=== PATIENT | female | born 1975 | race Caucasian/White ===

== ENCOUNTER → 2020-06-29 12:03 | Outpatient (CLI) | payer BC, SELFPAY ==
[2020-06-24 15:29] VITALS: BMI 38.1
--- NOTE | 2020-06-29 12:10 | US_ITS ---
STUDY: ULTRASOUND OF THE FEMALE PELVIS - COMPLETE REASON FOR EXAM: Female, 45 years old. Menorrhagia LMP: 06/10/2020. TECHNIQUE: Transabdominal and Transvaginal TECHNICAL QUALITY: Adequate. COMPARISON: None. FINDINGS: The uterus is anteverted and is in a midline position. The uterus is enlarged and measures 12 cm x 7.1 cm x 6.4 cm. Normal uterine cervix. The endometrium measures 17 mm in thickness, and is hyperechoic. There is no demonstrated endometrial mass. Heterogeneous appearance of the uterus although no focal fibroid is seen. I.U.D. - The patient does not have an I.U.D. The right ovary is visualized. The right ovary measures 4.6 cm x 3.7 cm x 1.8 cm. There is no right ovarian cyst or ovarian mass. There is no visualized right adnexal mass or complex lesion. There is normal arterial and normal venous vascularity. The left ovary is visualized. The left ovary measures 4.7 cm x 5.7 cm x 3.6 cm. There is a 2 cm x 1.4 cm x 1.8 cm cyst. There is no visualized left adnexal mass or complex lesion. There is normal arterial and normal venous vascularity. There is no fluid in the cul-de-sac. The pre void volume of the bladder was 541 ml. Polycystic ovary disease: No. US/Transvaginal Non- IMPRESSION: Enlarged heterogeneous uterus with thickened endometrium. 2 cm x 1.4 cm x 1.8 cm left ovarian cyst. Electronically Signed: Jim Matthews MD at 14:49 EST , Service support ,
--- NOTE | 2020-06-29 12:10 | US_ITS ---
STUDY: ULTRASOUND OF THE FEMALE PELVIS - COMPLETE REASON FOR EXAM: Female, 45 years old. Menorrhagia LMP: 06/10/2020. TECHNIQUE: Transabdominal and Transvaginal TECHNICAL QUALITY: Adequate. COMPARISON: None. FINDINGS: The uterus is anteverted and is in a midline position. The uterus is enlarged and measures 12 cm x 7.1 cm x 6.4 cm. Normal uterine cervix. The endometrium measures 17 mm in thickness, and is hyperechoic. There is no demonstrated endometrial mass. Heterogeneous appearance of the uterus although no focal fibroid is seen. I.U.D. - The patient does not have an I.U.D. The right ovary is visualized. The right ovary measures 4.6 cm x 3.7 cm x 1.8 cm. There is no right ovarian cyst or ovarian mass. There is no visualized right adnexal mass or complex lesion. There is normal arterial and normal venous vascularity. The left ovary is visualized. The left ovary measures 4.7 cm x 5.7 cm x 3.6 cm. There is a 2 cm x 1.4 cm x 1.8 cm cyst. There is no visualized left adnexal mass or complex lesion. There is normal arterial and normal venous vascularity. There is no fluid in the cul-de-sac. The pre void volume of the bladder was 541 ml. Polycystic ovary disease: No. US/Pelvic (Non ) IMPRESSION: Enlarged heterogeneous uterus with thickened endometrium. 2 cm x 1.4 cm x 1.8 cm left ovarian cyst. Electronically Signed: Jim Matthews MD at 14:49 EST , Service support ,
--- NOTE | 2020-06-29 12:10 | BI_ITS ---
MAMMOGRAPHY - BILATERAL SCREENING REASON FOR EXAM: Female, 45 years old. Routine annual screening examination. PERTINENT HISTORY: Non-contributory. TECHNIQUE: Digital bilateral breast cathleen (3D mammographic acquisition) in the CC and MLO projections. 2-D mediolateral oblique (MLO) and craniocaudad (CC) views of both breasts were obtained. CAD: Full Field Digital Mammography with Computer Added Detection was performed. COMPARISON: Comparison is made with prior outside examination dated 12/23/2018. FINDINGS: Breast Composition: The breasts are heterogeneously dense, which may obscure small masses. There are no dominant masses or suspicious calcifications. No other significant abnormalities are identified. There has been no significant change since the prior study. BI/SCRN MAMM (CAD)W/CATHLEEN BILAT IMPRESSION: Stable bilateral screening mammogram. Yearly follow-up mammogram recommended. (A) ASSESSMENT CATEGORY: BIRADS Category 1: Negative. A letter regarding these results will be sent to the patient by the facility within 30 days. Approximately 10% of breast cancers are not detected by mammography. A normal mammogram should not delay biopsy of a clinically suspicious abnormality. [id number] Electronically Signed: Jim Matthews MD at 13:30 EST , Service support ,
[2020-06-29 13:58] LABS: Absolute Lymphocyte Count 1.71 X10^3/uL (0.83-4.51); Absolute Neutrophil Count 4.6 X10^3/uL (2.0-7.7); Basophil# 0.02 X10^3/uL; Basophil% 0.3 % (0-1); Eosinophil# 0.11 X10^3/uL; Eosinophils% 1.6 % (0-5); Hematocrit 36.4 % (37-47); Hemoglobin 10.7 g/dL (12.0-15.0); Lymphocyte # 1.71 X10^3/ul (4.0); Lymphocyte % 24.2 % (19-41); Mean Corp Hgb Conc 29.4 g/dL (32-36); Mean Corpuscular Hgb 21.2 pg (27.0-32.0); Mean Corpuscular Volume 72.2 fL (81-99); Mean Platelet Vol. 9.4 fl (6.2-12.0); Monocyte# 0.64 X10^3/uL; Monocyte% 9.1 % (0-10); NRBC Flagged by Analyzer 0 % (0-5); Neutrophil # 4.57 X10^3/uL (2.7-7.7); Neutrophil % 64.5 % (47-70); Platelet Count 321 K/mm3 (150-450); RBC Distribution Width CV 17.4 % (11.6-14.6); RBC Distribution Width SD 45.1 fl (35.1-43.9); Red Blood Count 5.04 M/mm3 (4.2-5.4); White Blood Count 7.1 K/mm3 (4.4-11.0)
[2020-06-29 14:18] LABS: Thyroid Stim Hormone (TSH) 1.27 uIU/mL (0.358-3.74)
== END ==
PROVIDERS: Visit Provider Obstetrics & Gynecology
DX: N92.0 Excessive and frequent menstruation with regular cycle (principal); Z12.31 Encounter for screening mammogram for malignant neoplasm of breast
CPT/HCPCS: 36415; 76830; 76856; 77063; 77067; 84146; 84443; 85025

== ENCOUNTER → 2020-08-16 13:42 | Outpatient (CLI) | payer BC, SELFPAY ==
--- NOTE | 2020-08-16 | EMB_PTH ---
PATIENT: KARIN BACA LOC: [facility] U#:[id number] AGE/SX: 50/F ROOM: RE08/16/[address]: Dr. Summer Yost MD : 1975 BED: DIS: SPEC #: [id number] RECD: 08/16/20 13:26 STATUS: LIZBETH LUCINA #: [id number] ALLA: 08/16/20 00:[address]: Summer Yost DEPT: SURGICAL PATHOLOGY RECD BY: Jesús Ledbetter ENTERED: 08/17/20 07:53 SP TYPE: ENDOM BX/C CATY DR: No Primary Care Phys Tissues: Endometrium, NOS Procedures: Surgery Specimen Level IV HEADER OPERATION: Endometrial biopsy PRE-OP DIAGNOSIS: Menorrhagia TISSUE SUBMITTED: Endometrial lining MICROSCOPIC DIAGNOSIS Endometrial biopsy: Mildly disordered proliferative endometrium. SJ:grace 08/18/2020 MICROSCOPIC DESCRIPTION Slides are reviewed. GROSS DESCRIPTION Received is one container labeled with the patient's name and not further designated. The specimen consists of multiple irregular fragments of pink soft tissue that in aggregate measure 3 x 2.5 x 0.3 cm. The specimen is totally submitted in one cassette. / SJ:grace 08/17/20 TC:5 CPT: 19870
[2020-08-16 12:51] VITALS: BMI 37.8
== END ==
PROVIDERS: Visit Provider Obstetrics & Gynecology
DX: N92.0 Excessive and frequent menstruation with regular cycle (principal)
CPT/HCPCS: 88305

== ENCOUNTER 2020-09-07 06:12 | Day surgery (SDC) | payer BC, SELFPAY ==
[2020-07-22 15:07] VITALS: BMI 37.8
[2020-08-25 13:13] VITALS: BMI 38.9
[2020-09-06 10:36] LABS: Hemoglobin 10.5 g/dL (12.0-15.0); Mean Corp Hgb Conc 29.2 g/dL (32-36); Mean Corpuscular Hgb 21.5 pg (27.0-32.0); Mean Corpuscular Volume 73.6 fL (81-99); Mean Platelet Vol. 9.6 fl (6.2-12.0); Platelet Count 353 K/mm3 (150-450); RBC Distribution Width CV 17.8 % (11.6-14.6); RBC Distribution Width SD 47.5 fl (35.1-43.9); Red Blood Count 4.89 M/mm3 (4.2-5.4); White Blood Count 6.1 K/mm3 (4.4-11.0)
[2020-09-07] VITALS (14 sets, daily range): BP systolic 84–133; BP diastolic 41–73; PULSE 69–89; RESP 12–20; TEMP 36.1–37.5; O2SAT 87–100; BMI 38.3
--- NOTE | 2020-09-07 | HYST_PTH ---
PATIENT: KARIN BACA [place] [facility] [id number] AGE/SX: 45/F ROOM: RE09/07/[address]: Dr. Summer Yost MD : 1975 BED: DIS: 09/07/2020 SPEC #: [id number] RECD: 09/07/20 13:15 STATUS: LIZBETH REJulius #: [id number] ALLA: 09/07/20 00:[address]: Summer Yost DEPT: SURGICAL PATHOLOGY RECD BY: Jesús Ledbettre ENTERED: 09/08/20 07:31 SP TYPE: HYSTERECT OTHR DR: No Primary Care Phys Tissues: Uterus, NOS Procedures: Surgery Specimen Level V HEADER OPERATION: ERATessie, lap robotic hysterectomy, oophorectomy, cystoscopy PRE-OP DIAGNOSIS: Abnormal uterine bleeding TISSUE SUBMITTED: Uterus, bilateral fallopian tubes and ovaries MICROSCOPIC DIAGNOSIS Uterus, bilateral fallopian tubes and ovaries, hysterectomy and bilateral salpingo-oophorectomy: Cervix - mild chronic inflammation. Endometrium - proliferative endometrium. - Benign endometrial polyp (1 cm in greatest dimension). Myometrium - focal superficial adenomyosis. Right fallopian tube - no pathologic diagnosis. Left fallopian tube - focal endometriosis. Bilateral ovaries - physiologic follicular and corpus luteal cysts. SJ:rg 09/09/2020 COMMENT Please make reference to previous specimen ([id number]) endometrial biopsy with diagnosis of mildly disordered proliferative endometrium. MICROSCOPIC DESCRIPTION Slides are reviewed. GROSS DESCRIPTION Received in fixative is one container labeled with the patient's name and designated uterus, bilateral fallopian tubes and ovaries. The specimen consists of a hysterectomy specimen consisting of uterus with cervix and attached bilateral fallopian tubes and ovaries. The uterus with cervix weighs 177 gm and measures 10.5 x 8 x 5 cm. The serosal surface is bermudez, glistening. The ectocervical mucosa is unremarkable. The external os is slit-like in contour. The endocervical canal measures 3 cm in length and the endocervical mucosa is bermudez, glistening and unremarkable. The triangular endometrial cavity measures 5 cm in length and up to 4 cm in width. The endometrium shows a bermudez-pink polyp at the fundus at the posterior uterine wall measuring 1 x 1 x 02 cm. The rest of the endometrium is bermudez, glistening and measures up to 0.1 cm in thickness. Sections of the uterine wall do not reveal any mass lesion and measures up to 3.5 cm in thickness. The uterine wall underneath the polyp is not indurated. The right fallopian tube measures 6.5 cm in length and 0.5 cm in diameter. The fimbrial is identified. It is interrupted in the middle consistent with previous tubal ligation and a plastic O-ring is noted in the middle which appears intact. The right ovary measures 3.5 x 1.5 x 1 cm. No tubo-ovarian adhesions are noted. Sections reveal a few cysts filled with clear fluid. A corpus luteum is also noted measuring 0.5 cm in greatest dimension. The left fallopian tube measures 6 cm in length and 0.5 cm in diameter. It is similar appearance to right. A paratubal cyst is noted measuring 0.5 cm in greatest dimension. It is interrupted in the middle consistent with previous tubal ligation. A plastic O-ring is noted which appears intact. The fallopian tube shows a small amount of bloody fluid. The soft to cystic left ovary measures 4 x 2.5 x 2 cm. No tubo-ovarian adhesions are noted. Sections reveal multiple cysts filled with clear fluid. The largest cyst measures 2 cm in greatest dimension. A hemorrhagic corpus luteum is also noted measuring 1.2 cm in greatest dimension. Light Bulb Tester sections are submitted in 12 cassettes as follows: 1 - anterior cervix, 2 - posterior cervix, 3 & 4 - anterior uterine wall, 5 & 6 - posterior uterine wall, 7 - endometrium polyp with underlying uterine wall, 8 - right fallopian tube, 9 - right ovary, 10 - left fallopian tube, 11 & 12 - left ovary. / JYOTI:grace 09/08/20 TC:5 CPT: 48554
--- NOTE | 2020-09-07 07:20 | HP.PCM_ITS ---
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 Summer Yost MD) number of children: 3 current occupational status: employed alcohol intake: current details: occasionally substance use type: does not use caffeine: No what type of physical activity do you participate in: none seatbelt use: always do you feel safe at home: Yes additional social history: - Wilner HPI robotic LATVH BS cysto: Details: KARIN BACA is a 45 year old who presents for robotic assisted total laparoscopic hysterectomy, bilateral salpingo-oophorectomy, cystoscopy. Patient has had heavy periods for multiple years. Unable to take combination OCPs due to history of migraines with aura. Recently failed Aygestin as this caused her to have significant worsening of her migraines. Pregancy History 3 Elective abortions Hx Para 3 Spontaneous abortions Hx # Term Pregnancies Ectopic pregnancies Hx # Pregnancies Multiple births # of living children 3 Past Pregnancies Del. Date Name GA/Weeks Outcome Route Bth Weight Infant Gen Labor Lgth Anesthesia Del Locatn Provider FOB Unknown Dany Unknown Ric Unknown Christophe ROS Const Constitutional: Reports system reviewed and no additional complaints, except as docu; denies chills or fever(s) Eyes Eyes: Reports system reviewed and no additional complaints, except as docu ENT ENT: Reports system reviewed and no additional complaints, except as docu Cardio Card: Reports system reviewed and no additional complaints, except as docu; denies chest pain, leg swelling or rapid, pounding, or irregular heartbeat Resp Resp: Reports system reviewed and no additional complaints, except as docu; denies dyspnea GI GI: Reports system reviewed and no additional complaints, except as docu; denies constipation, nausea or vomiting : Reports system reviewed and no additional complaints, except as docu; denies painful urination, pelvic pain, urinary frequency, urinary hesitancy, ur inary urgency, vaginal discharge, vaginal odor or vaginal itching Musc Musc: Reports system reviewed and no additional complaints, except as docu Skin Skin/Breast: Reports system reviewed and no additional complaints, except as docu Neuro Neuro: Reports system reviewed and no additional complaints, except as docu Psych Psych: Reports system reviewed and no additional complaints, except as docu Endo Endo: Reports system reviewed and no additional complaints, except as docu Exam Const General: cooperative, healthy appearing, comfortable, well developed, well groomed Neck Neck: normal visual inspection, full ROM Resp Effort & Inspection: normal respiratory effort, able to speak in complete sentences, symmetric chest movement Cardio Rate: regular rate Skin General: no rashes or lesions noted, elasticity normal, turgor normal Lesions: no lesions Rashes: no rashes Neuro General: alert, awake, oriented x3 Cranial Nerves: CN's II-XI intact bilaterally, PERRL, EOM intact bilaterally Cognition: normal cognition Speech: speech normal Gait: normal gait Extrem General: normal to inspection, full ROM, no pedal edema Psych Appearance: grossly normal Mental Status: mental status grossly normal Mood: congruent mood Affect: normal affect Speech and Movement: speech and movement normal Attitude: cooperative Thought Process: normal Thought Content: normal Assessment & Plan 1. Abnormal uterine bleeding (AUB) N93.9 Plan Patient presents for preop visit for robotic assisted total laparoscopic hysterectomy, bilateral salpingo-oophorectomy, cystoscopy. Risks of this procedure discussed with the patient in depth at the last office visit. Risk briefly reviewed again today. Denies questions. Discussed postoperative care and expectations. Reviewed medical history and review of systems. These are unchanged from prior visit. Consent signed today in the office. UPDATE- I have seen the patient and performed any clinically relevant updates to the history and physical exam. Summer Yost MD
[2020-09-07] MEDS: Phenazopyridine 95 MG Tablet 190 MG PO (07:26)
[2020-09-07] MEDS: Celecoxib 200 MG Capsule 400 MG PO (07:27)
[2020-09-07] MEDS: Acetaminophen 500 MG Tablet 1000 MG PO (07:27)
[2020-09-07] MEDS: Gabapentin 600 MG Tablet PO (07:27)
[2020-09-07] MEDS: Lactated Ringers 1,000 ML 40 ML IV (07:47)
[2020-09-07] MEDS: dexAMETHasone 10 MG/ML Vial 8 MG IV (07:48)
[2020-09-07 08:01] LABS: Bedside Glucose 78 mg/dL (70-110)
--- NOTE | 2020-09-07 08:28 | DCINST_ITS ---
Discharge Diet: No Restrictions Discharge Activity: Return to Normal Activity, May Not Drive - while taking narcotic pain medications., May Shower May resume sexual activity in: 6-8 weeks Call your doctor if your incision/area has: Continuous Slow Oozing, Sudden Increased Bleeding, Increased Pain/ Swelling, Increased Redness, Foul Smelling Discharge Call your doctor if you observe: Fever of 101 or Higher, Inability to urinate, Inability to have a bowel movement, Using more than one pad per hour Allergies/Adverse Reactions: Allergies morphine Adverse Reaction (Verified 09/07/20 07:15) skin irritation Medications to take at Discharge NK 08/31/20 Primary Care Physician: Care Physician,No Primary [Primary Care Provider] - Test Results: Test results from this visit will be discussed in further detail at your follow- up appointment, if applicable.
--- NOTE | 2020-09-07 08:37 | OP.PCM_ITS ---
Problem List (1) Abnormal uterine bleeding (AUB) Status: Acute Report of Operation Date of Procedure: 09/07/20 Pre-Operative Diagnosis: Abnormal uterine bleeding, enlarged uterus Post-Operative Diagnosis: Same Surgery/Procedure Performed:: Robotic assisted total laparoscopic hysterectomy, bilateral salpingo-oophorectomy, cystoscopy Description of Surgical Findings:: Globally enlarged uterus. Normal tubes and ovaries. Minimal scar tissue near bladder flap. disability examiner: Shonda Vogel Type of Anesthesia:: General Drains: hernandez Estimated Blood Loss (mL): 50 ml Description of Procedure: The patient was taken to the operating room where general anesthesia was obtained without difficulty. She was prepped and draped in the dorsolithotomy position with yellowfin stirrups. Weighted speculum was placed in the posterior aspect of the vagina and the anterior lip of the cervix was grasped with a single-tooth tenaculum. The cervix was sequentially dilated in order to accommodate an Aventicular uterine manipulator. Gloves were changed and attention was directed to the abdominal cavity. A 5 mm incision was made in the left upper quadrant and the varies needle was inserted without difficulty. The abdomen was insufflated. The Veress needle was removed and a 5 mm Optiview port was placed under direct visualization. Intra-abdominal placement was confirmed. 8 mm incisions were made in the right and left lower quadrants and approximately 2 fingerbreadths above the umbilicus and robotic ports were placed. A 12 mm accessory port was placed in the right upper quadrant. Findings were as above. The patient was placed in steep Trendelenburg positioning and the bowel was displaced superiorly. The da Maynor robot was subsequently docked without any complications. The broad ligaments were grasped and cauterized with the bipolar and transected using the endoshears. The broad ligament was opened using blunt and sharp dissection. The endoshears were used to create an avascular window to isolate the IP ligament. The infundibulopelvic ligament was cauterized and transected using the bipolar energy followed by the endoshears. The anterior leaf of the broad ligament was entered and the bladder flap dissected off of the lower uterine segment and cer vix without complications. The uterine arteries bilaterally were skeletonized, cauterized, and transected. At this time, the uterus was blanched effectively demonstrating that the blood supply to the uterus had been terminated. The colpotomy was made with the monopolar scissors and carried around the entire cervicovaginal junction until the cervix and uterus were released. The cervix and uterus were removed from the abdominal cavity through the vagina. A pneumooccluder was then placed in the vagina. The cuff was then closed in a running fashion using oh V-Loc suture. The abdomen was copiously irrigated, cleared of all clots and debris, and the pedicles were examined and noted to be hemostatic. Occluder was then removed from the vagina. Attention was then directed to the pelvis to perform a cystoscopy. Hernandez catheter was removed and the cystoscope was introduced into the bladder. The bladder was inspected and no evidence of trauma was noted. Vigorous spill was noted bilaterally from the ureters. The cystoscope was then removed from the bladder. Gloves were changed and all the instruments were subsequently removed from the patient?s abdomen and vagina, and a deep stitch of 2-0 vicryl was performed at the 12-mm port site, and the five skin incisions were closed with #4-0 Monocryl for excellent hemostasis and reapproximation. All counts were correct x2. The patient was awakened and taken to the recovery room in stable condition. - Complications None apparent - Admit VTE Documentation VTE Present on Admission: No VTE Mechan Device Prophylaxis: SCD's VTE Pharm Prophylaxis ordered?: No Multi Select Codes - Urinary/Genital Urinary/Genital CPT Codes: 16364 TLH+BS/O <250gr uterus - robotic assisted
[2020-09-07] MEDS: Cefazolin 2 GM in 0.9% Normal Saline 100 ML IV (09:19)
[2020-09-07 12:26] LABS: Bedside Glucose 122 mg/dL (70-110)
[2020-09-07] MEDS: Lactated Ringers 1,000 ML 70 ML IV (13:02)
--- NOTE | 2020-09-07 13:16 | SUR.PHASEI ---
BP dropped to 84/41, so I went ahead and opened up her fluids. This could be related to the dilaudid.
--- NOTE | 2020-09-07 13:22 | SUR.PHASEI ---
While simple mask was removed when she was eating ice chips, she started dosing off and her pulse ox dropped to 87%. I reapplied the simple mask at 6 liters per ERAS protocol and she went back up to 100%.
== END 2020-09-07 15:20 | disposition home or self-care (01) ==
LOC: SDC 06:13 → AC 06:14
PROVIDERS: Anesthesiology; Referring Provider Obstetrics & Gynecology; Visit Provider Obstetrics & Gynecology
PROC: 0UT94ZZ Resection of Uterus, Percutaneous Endoscopic Approach (ICD-10-PCS; CPT 58571; principal; 2020-09-07 08:25)
DX: N93.9 Abnormal uterine and vaginal bleeding, unspecified (principal); N83.12 Corpus luteum cyst of left ovary; N83.11 Corpus luteum cyst of right ovary; N84.0 Polyp of corpus uteri; E66.01 Morbid (severe) obesity due to excess calories; Z68.38 Body mass index [BMI] 38.0-38.9, adult
CPT/HCPCS: 00940; 58571; S2900; 36415; 82962; 83735; 85027; 86850; 86900; 86901; 87426; 88307; C9803; J7120; J2405